=== PATIENT | male | born 1965 | race Caucasian/White ===

== ENCOUNTER 2021-08-12 21:39 | Inpatient (IN) | payer SELFPAY ==
[2021-08-12] MEDS: OLANZapine 5 mg ODT PO (21:30)
[2021-08-12] MEDS: trazodone 50 mg Tablet PO (21:45)
[2021-08-12 22:41] VITALS: BP 137/81; PULSE 75; RESP 20; TEMP 36.6; O2SAT 96
[2021-08-12] MEDS: haloperidol 5 mg Tablet PO (23:47)
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
[2021-08-13 14:00] VITALS: BP 94/54; PULSE 55; RESP 18; TEMP 36.8; O2SAT 96
[2021-08-13] MEDS: OLANZapine 5 mg ODT PO (18:00)
[2021-08-13] MEDS: haloperidol 5 mg Tablet PO (18:34)
--- NOTE | 2021-08-13 18:38 | PC.NURSE ---
PRN Medication Patient up to nurses station visibly shaking and report, I am so anxious I'm shaking see? Requested haldol due to stating Vistaril does not work. Educated patient that orders state to give Zydis first then go to Haldol if ineffective. Agreed to take Zydis as ordered by . Came back to nurses station in 30 minutes and states the Zydis did not work. Haldol given as ordered. Will pass on to oncoming shift for follow up.
--- NOTE | 2021-08-13 19:26 | PC.NURSE ---
Haldol PRN Reassessed PRN Haldol for anxiety. Patient voices some relief with pharmaceutical intervention. Resting in bed, respirations even and unlabored at this time. Educated on PRN medications and to let the nurse know if anxiety continues. Patient agrees.
[2021-08-13 20:11] VITALS: BP 100/58; PULSE 64; RESP 19; TEMP 36.4; O2SAT 97
[2021-08-14 06:00] VITALS: RESP 17
[2021-08-14] MEDS: haloperidol 5 mg Tablet PO ×3 (06:15→20:46)
--- NOTE | 2021-08-14 06:16 | PC.NURSE ---
Patient came to nurses station and expressed anxiety 10/10. Requested PRN medication. PRN Zydis given as ordered, about an hour later patient came back to nurses station continuing to c/o of anxiety 10/10, Zydis ineffective, PRN haldol given as ordered.
--- NOTE | 2021-08-14 09:01 | P.NPUPN_ITS ---
Subjective NPU Subjective: He says that he slept well last night. he was anxious last night and took Zyprexa Zydis and Haldol around 6 PM. He slept well and did not be trazodone last night. He says that he feels better this morning. He still seems to be delusional about these people from the cartel being after him. Mental Status Exam MSE Comments: This is a 56-year-old male who appears approximately his stated age and is in no acute distress. He is in bed and dressed in hospital scrubs. He is poorly groomed and has not shaven. psychomotor activity is normal. Speech is at a regular rate and rhythm, normal volume, good articulation, not pressured. Alert, oriented X3 Attention and concentration appears to be intact. Memory is intact Mood is anxious and depressed. Affect is moderately dysphoric. Thought process is logical and goal-directed. Thought content: Denies auditory and visual hallucinations. There appears to be some delusions and paranoia thinking that there is drug cartel has been nervo us about him all over the country and wants to kill him. No current suicidal ideation, and no homicidal ideation. Fund of knowledge is probably average. Insight and judgment appear to be poor. Impulse control is fairly poor. Cognition: Patient Appearance: Appropriate Ability to Follow Directions: Excellent Patient Orientation (long list): Person, Place, Name, Birthday, Month and Year Comprehension Ability: No Impairment Hallucination Type: None Delusion Description: Not Present Thought Process: Appropriate Affect: Affect Description: Flat Behavior: Patient Behavior: Appropriate Speech Pattern: Appropriate Vitals/I&O/Wt Last Vital Signs Temp 97.5 F L 08/13/21 20:11 Pulse 64 08/13/21 20:11 Resp 17 08/14/21 06:00 BP 100/58 08/13/21 20:11 Pulse Ox 97 08/13/21 20:11 A&P Assessment and plan (1) Methamphetamine abuse: Status: Acute (2) Psychosis: Status: Acute (3) Depression: Status: Acute (4) Anxiety: Status: Acute Plan This is a 56-year-old male who appears to be psychotic with delusions and paranoia. Hopefully this is methamphetamine induced and will go away without significant treatment Plan: 1. He will take trazodone as needed and will start Zoloft 50 mg daily 2. Continue every 15 minute checks for safety. 3. Encourage individual, group and milieu therapies. 4. Encourage sober living treatment after discharge at the highest level of care to which he is willing to commit. 5. We will monitor for safety for himself in the community prior to discharge. Involuntary Hold Information 96 Hour Hold: 96 Hour Involuntary Admission: No Attestations NPU Medical Necessity Statement*: Inpatient hospitalization is medically necessary and the clinically appropriate intervention at this time. We will initiate medications and make changes as indicated. Coding Level of Care Code Acute Asset Protection Officer for Cherrie Elizabethd Diagnoses Methamphetamine abuse F15.10 Psychosis F29 Depression F32.A Anxiety F41.9
--- NOTE | 2021-08-14 11:49 | NPU.GN ---
[facility] Group Topic:Mental Health discussion General Mood of Group: Daniel did not attend group today.
[2021-08-14] MEDS: hyDROXYzine 25 mg Capsule 50 MG PO (12:18)
--- NOTE | 2021-08-14 12:19 | PC.NURSE ---
PRN VISTARIL 50 MG GIVEN PO PER PT C/O STATED ANXIETY. PT IS PLEASANT WITH STAFF INTERACTION, JUST ISOLATES TO ROOM MOST OF THE MORNING
--- NOTE | 2021-08-14 13:01 | PC.NURSE ---
PRN HALDOL 5 MG GIVEN PO PER PT C/O FURTHER ANXIETY. STATED NOT MUCH RELIEF FROM PRN VISTARIL FROM EARLIER.
[2021-08-14] MEDS: OLANZapine 5 mg ODT PO ×2 (14:49→20:15)
--- NOTE | 2021-08-14 14:50 | PC.NURSE ---
PRN ZYPREXA ZYDIS 5 MG GIVEN PO PER PT C/O FURTHER ANXIETY/AGITATION. PT CONT TO MED SEEK, ASKING FOR ANY AND ALL PRN MEDICATIONS HE CAN HAVE.
[2021-08-14 14:52] VITALS: BP 130/84; PULSE 59; RESP 17; TEMP 36.7; O2SAT 95
[2021-08-14] MEDS: trazodone 50 mg Tablet PO (20:46)
[2021-08-14 21:25] VITALS: BP 112/61; PULSE 69; RESP 20; TEMP 36.4; O2SAT 97
[2021-08-15 02:43] VITALS: BMI 33.9
[2021-08-15] MEDS: haloperidol 5 mg Tablet PO ×2 (05:32→10:21)
--- NOTE | 2021-08-15 05:33 | PC.NURSE ---
Patient c/o anxiety 10/10 at bedtime last night, given PRN zydis, patient reported zydis as inefective and c/o of continued anxiety 03/05. PRN haldol given with noted effectiveness. Patient c/o of anxiety 10/10 at approx 0530am, given PRN haldol.
[2021-08-15 06:00] VITALS: RESP 20
[2021-08-15] MEDS: sertraline 50 mg Tablet PO (08:22)
--- NOTE | 2021-08-15 10:22 | PC.NURSE ---
PRN MED PT GIVEN 5MG HALDOL FOR STATED ANXIETY/AGITATION, WILL CONTINUE TO MONITOR
--- NOTE | 2021-08-15 11:18 | NPU.GN ---
[facility] Group Topic:Positive Coping Skills General Mood of Group: Daniel did attend group today. He was social and his hygiene was ok. His demeanor was ok.
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
[2021-08-15 12:21] VITALS: RESP 20
== END 2021-08-15 13:34 | disposition home or self-care (01) | DRG 897 ==
PROVIDERS: Admitting Provider Psychiatry & Neurology Psychiatry; Visit Provider Psychiatry & Neurology Psychiatry
DX: F15.159 Other stimulant abuse with stimulant-induced psychotic disorder, unspecified (principal); R45.851 Suicidal ideations; F32.A Depression, unspecified; F41.9 Anxiety disorder, unspecified
CPT/HCPCS: 97165